=== PATIENT | male | born 1980 | race Caucasian/White ===

== ENCOUNTER 2020-10-29 14:29 | Outpatient (AMBR) | payer MEDICAID, SELFPAY ==
--- NOTE | 2020-09-09 10:42 | PT.ODS1RPT ---
PT OP Progress/Discharge Note Date of Service: 09/09/20 Progress Note/DC Note Progress Note/Discharge Note: DC Note Patient Information Visit Reasons: left leg Service Continue Service or Discharge: Discharge Discharge Date: 09/09/20 Status Assessment: Pt attended the initial evaluation and 6 Rx visits and then no showed on 09/01 and then on 09/09. Pt?s attendance is not consistent enough to make progress with goals. Pt will be D/C'd according to non-compliance with attendance policy. Plan: D/C
--- NOTE | 2020-10-09 13:48 | PTNOTE_ITS ---
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 Pt was seen here before hand and had difficulty attending sessions due to financial reason and no transportation. Pt currently has limitation with sitting, standing, chores, driving, recreational activities, walking, sitting, and lifting activities. Pt is in the process of getting a new prothesis. Objective L/S AROM (sitting): all motions are 50% towards end with pain in all plane Left Hip AROM (standing) Flexion: 45 deg Abduction: 45 deg Extension: 10 deg ER and IR: NT Left Hip MMTs Flexors: 3-/5 Abductors: 3/5 Extensor: 3-/5 SLS: unable Palpation: TTP and increase tone T11-L2 paraspinal muscles; Assessment Pt demonstrate back pain with left hip mobility deficits leading to decline function and difficulty with ADLs. Pt will benefit from physical therapy to increase ROM, strength, and work on ambulation. Short Term and Prison Goals 1) Increase L/S AROM WNL in 8 wks to be able to sit and stand more than 45 mins 2) Increase left hip AROM WFL in 8 wks to be able to perform chores 3) Increase left hip MMTs grossly to 4-/5 in 8 wks to be able to ambulate more than 1 hr with AD 4) Decrease back pain to 3/10 in 8 wks to be able to sleep more than 6 hrs 5) Increase core strength WFL in 8 wks to be able to perform lifting activities 6) Indep with HEP Treatment Plan 1) Manual Therapy 2) Therapeutic Activities 3) Therapeutic Exercises 4) Modalities (ice, heat) 5) Balance Training 6) Gait Training 7) Pt's plan of care will be transfer to [facility] PT, DPT as of 10/09/20 Frequency and Duration 2 x wk for 8 wks Certification Dates: 10/09/20 to 01/09/21 Office Procedures PT Procedures PT Date of Service: 10/09/20 OP PT Eval Mod Complex 30 minutes: Yes
--- NOTE | 2020-10-13 15:53 | PTNOTE_ITS ---
PT Outpatient Daily Note Date of Service: 10/13/20 OP Daily Note Visit Reasons: left leg Outpatient Physical Therapy Treatment Date: 10/13/20 Subjective: Pt reports L LE pain and LBP Objective: See f/S for therex Assessment: Pt circumducts the L LE which abduction may be irritating the hip. We adjusted the flexion pressure of prosthesis to motion picture critic to see if it would flex sooner so he could swing the foot without circumducting it. He was able to slightly improve in this aspect. Plan: Continue per POC Length of Time (minutes) of Treatment: 30 Minutes Office Procedures PT Procedures PT Date of Service: 10/09/20 OP PT Eval Mod Complex 30 minutes: Yes PT Procedures PT Date of Service: 10/13/20 Therapeutic Exercise 30 minutes: Yes
--- NOTE | 2020-10-15 15:58 | PT.ODAYNRPT ---
PT Outpatient Daily Note Date of Service: 10/15/20 OP Daily Note Visit Reasons: left leg Outpatient Physical Therapy Treatment Date: 10/15/20 Subjective: Pt reports L LE pain and that the prosthesis digs into his upper thigh. He has appt with service captain in the upcoming month. Objective: See f/S for therex Assessment: Pt circumducts the L LE which abduction may be irritating the hip. We adjusted the flexion pressure of prosthesis to dispatcher service or work to see if it would flex sooner so he could swing the foot without circumducting it. He was able to slightly improve in this aspect. Plan: Continue per POC Length of Time (minutes) of Treatment: 30 Minutes Office Procedures PT Procedures PT Date of Service: 10/09/20 OP PT Eval Mod Complex 30 minutes: Yes PT Procedures PT Date of Service: 10/13/20 Therapeutic Exercise 30 minutes: Yes PT Procedures PT Date of Service: 10/15/20 Therapeutic Exercise 30 minutes: Yes
--- NOTE | 2020-10-20 18:21 | PT.ODAYNRPT ---
PT Outpatient Daily Note Date of Service: 10/20/20 OP Daily Note Visit Reasons: left leg Outpatient Physical Therapy Treatment Date: 10/20/20 Subjective: Pt reports L LE pain and that the prosthesis digs into his upper thigh. He has appt with retort load expediter in the upcoming month. Objective: See f/S for therex Assessment: Pt circumducts the L LE which abduction may be irritating the hip. The prosthesis was loose and wanted to fall off today. He has good strength with total gym squats. Plan: Continue per POC Length of Time (minutes) of Treatment: 30 Minutes Office Procedures PT Procedures PT Date of Service: 10/09/20 OP PT Eval Mod Complex 30 minutes: Yes PT Procedures PT Date of Service: 10/20/20 Therapeutic Exercise 30 minutes: Yes PT Procedures PT Date of Service: 10/13/20 Therapeutic Exercise 30 minutes: Yes PT Procedures PT Date of Service: 10/15/20 Therapeutic Exercise 30 minutes: Yes
--- NOTE | 2020-10-26 18:37 | PTNOTE_ITS ---
PT Outpatient Daily Note Date of Service: 10/26/20 OP Daily Note Visit Reasons: left leg Outpatient Physical Therapy Treatment Date: 10/26/20 Subjective: Pt reports L LE pain and that the prosthesis digs into his upper thigh. He has appt with vat overhauler in the upcoming month. Objective: See f/S for therex Assessment: Pt circumducts the L LE which abduction may be irritating the hip. The prosthesis was loose and wanted to fall off today. He has good strength with total gym squats. Plan: Continue per POC Length of Time (minutes) of Treatment: 30 Minutes Office Procedures PT Procedures PT Date of Service: 10/09/20 OP PT Eval Mod Complex 30 minutes: Yes PT Procedures PT Date of Service: 10/20/20 Therapeutic Exercise 30 minutes: Yes PT Procedures PT Date of Service: 10/26/20 Therapeutic Exercise 30 minutes: Yes PT Procedures PT Date of Service: 10/13/20 Therapeutic Exercise 30 minutes: Yes PT Procedures PT Date of Service: 10/15/20 Therapeutic Exercise 30 minutes: Yes
--- NOTE | 2020-10-29 17:03 | PT.ODS1RPT ---
PT OP Progress/Discharge Note Date of Service: 10/29/20 Progress Note/DC Note Progress Note/Discharge Note: Progress Note Patient Information Visit Reasons: left leg Treatment Dx #1: Back Pain Treatment Dx #2: Left Hip Pain Service Continue Service or Discharge: Continue Service Certification Date Certification Dates: 10/09/20 to 01/09/21 Status Subjective: Pt reports L LE pain and that the prosthesis digs into his upper thigh. He still has LBP. Objective: See f/S for therex Assessment: Pt has attended 5/5 Rx visits with slow progress with standing therex. Pt circumducts the L LE which abduction may be irritating the hip and L/S. The prosthesis was loose and wanted to fall off today. He has good strength with total gym squats. Pt would benefit from continued therapy to relieve LBP. Plan: Request additional visits x5 to address LBP. Need provider signature to continue since order is for 2x3 weeks. Goals Achieved: Office Procedures PT Procedures PT Date of Service: 10/09/20 OP PT Eval Mod Complex 30 minutes: Yes PT Procedures PT Date of Service: 10/20/20 Therapeutic Exercise 30 minutes: Yes PT Procedures PT Date of Service: 10/26/20 Therapeutic Exercise 30 minutes: Yes PT Procedures PT Date of Service: 10/13/20 Therapeutic Exercise 30 minutes: Yes PT Procedures PT Date of Service: 10/15/20 Therapeutic Exercise 30 minutes: Yes PT Procedures PT Date of Service: 10/29/20 Therapeutic Exercise 30 minutes: Yes
== END 2020-11-03 23:59 | disposition home or self-care (01) ==
PROVIDERS: PCP Physician Assistant; Referring Provider Physician Assistant; Visit Provider Physician Assistant
DX: M54.5 Low back pain (principal); M25.552 Pain in left hip; R26.2 Difficulty in walking, not elsewhere classified; G89.29 Other chronic pain; Z89.512 Acquired absence of left leg below knee
CPT/HCPCS: 97110; 97162

== ENCOUNTER 2024-07-30 09:48 | Emergency (ER) | payer MEDICARE, MEDICAID, SELFPAY ==
[2024-07-30 09:49] VITALS: BMI 33.5
[2024-07-30 10:02] VITALS: BP 167/84; PULSE 81; RESP 18; TEMP 36.4; O2SAT 99
--- NOTE | 2024-07-30 10:10 | XR_ITS ---
Examination: CT brain head without contrast. 2-D sagittal coronal reconstructions Date and time of exam:July 30, 2024 1131 hours Comparison 11/18/2019 INDICATIONS: Intermittent head pain and pressure 6 months CTDI: vol (mGy):56 DLP: (mGycm):1143 Technique: Multiple CT axial sections of the brain have been obtained, 5 mm slice thickness. Contrast has not been administered. 2-D sagittal, coronal reconstructions have been obtained Low dose protocols were performed. One or more of the following dose reduction techniques were used; automated exposure control, adjustment of the mA and/or KV according to patient size, use of iterative reconstruction technique. Findings: No significant ventricular enlargement. Intra-axial or extra-axial hemorrhage density is not seen. No mass effect or midline shift Basal cisterns are not remarkable. Fourth ventricle is midline. Cranial vault intact. Impression: Negative for acute hemorrhage, mass effect or midline shift Advise clinical correlation follow-up accordingly
--- NOTE | 2024-07-30 10:10 | EKG_ITS ---
[facility] Test Date: 2024-07-30 Pat Name: LOW PISANO Department: Room: - Gender: Male [employer]: : 1980 Requested By: Jean-Paul Harris Order Number: [id number] Reading MD: Jean-Paul Harris Measurements Intervals Russell Rate: 76 P: 39 MS: 167 QRS: 20 QRSD: 87 T: 16 QT: 361 QTc: 407 Interpretive Statements SINUS RHYTHM Compared to ECG 11/12/2023 09:36:43 No significant changes /store/S0/[id number].pdf
--- NOTE | 2024-07-30 10:10 | XR_ITS ---
Examination: PA lateral chest 2 views TECHNIQUE: Upright PA lateral chest 2 views Date and time: July 30, 2024 1057 hours INDICATIONS: Shortness of breath 2 months, smoking history 15 years. FINDINGS: Normal heart size Descending thoracic aortic endoluminal stent Blunting of the posterior costophrenic angles No pneumonia or pulmonary edema IMPRESSION: No pneumonia or pulmonary edema
--- NOTE | 2024-07-30 10:10 | PD.EDRME ---
Rapid Medical Screening Exam RME Arrival date/time: 07/30/24 09:48 43-year-old male with a history of depression and anxiety presents to the emergency room with a chief complaint of a 10 out of 10 headache, dizziness, lightheadedness, ringing in the ears x 1 month. Patient states he is also hearing voices. Patient denies any suicidal or homicidal ideation at this time I have greeted and performed a focused initial assessment of this patient. A comprehensive ED assessment and evaluation of the patient, analysis of all test results, and completion of the medical decision making process will be conducted by additional ED providers. Chief Complaint: Headache Time Seen by Provider: 07/30/24 09:53 Vital signs: Vital Signs Temperature 97.6 F 07/30/24 10:02 Pulse Rate 81 07/30/24 10:02 Respiratory Rate 18 07/30/24 10:02 Blood Pressure 167/84 H 07/30/24 10:02 Pulse Oximetry (%) 99 07/30/24 10:02 Oxygen Delivery Method Room Air 07/30/24 10:02 Vital signs reviewed by provider: Yes
[2024-07-30 10:43] LABS: Collection Type, Urine Clean Catch
[2024-07-30 10:52] LABS: Basophils # (Auto) 0.1 Thou/mm3 (0.0-0.2); Basophils % (Auto) 1 % (0-2.5); Eosinophils # (Auto) 0.2 Thou/mm3 (0.0-0.5); Eosinophils % (Auto) 2 % (0-10); Hematocrit 41.8 % (41.0-53.0); Hemoglobin 14.1 g/dL (13.5-16.0); Immature Granulocytes % (Auto) 0 % (0-0); Immature Granulocytes Auto 0.04 Thou/mm3 (0.00-0.00); Lymphocytes # (Auto) 1.6 Thou/mm3 (1.0-4.8); Lymphocytes % (Auto) 14 % (10-50); Mean Corpuscular HGB Conc 33.7 g/dl (31.0-37.0); Mean Corpuscular Hemoglobin 26.8 pg (25.0-35.0); Mean Corpuscular Volume 80 fL (80-100); Monocytes # (Auto) 0.9 Thou/mm3 (0.0-0.8); Monocytes % (Auto) 8 % (0-12); Neutrophils # (Auto) 8.2 Thou/mm3 (1.8-7.7); Neutrophils % (Auto) 75 % (37-80); Nucleated Red Blood Cell % 0 /100 WBC (0); Platelet Count 201 Thou/mm3 (140-440); RDW Standard Deviation 41.2 fL (35.1-43.9); Red Blood Count 5.26 Miln/mm3 (4.50-5.90)
[2024-07-30 10:59] LABS: Bacteria,Urine Rare; Bilirubin,Urine Negative (Negative); Blood,Urine Trace (Negative); Clarity,Urine Clear (Clear/Hazy); Color,Urine Yellow (Lt Yel-Yel); Glucose, Urine Negative (Negative); Ketones,Urine Negative (Negative); Leukocyte Esterase,Urine Negative (Negative); Nitrite,Urine Negative (Negative); Protein,Urine Trace (Neg - Trace); RBC,Urine 2 /hpf (0-3); Specific Gravity,Urine 1.021 (1.001-1.035); Squamous Epithelial Cell,Urine < 1 /hpf (0-5); Urobilinogen,Urine Negative mg/dL (0.0-1.0); WBC,Urine 2 /hpf (0-5)
[2024-07-30 11:13] LABS: B-Type Natriuretic Peptide < 20 pg/mL (0-100)
[2024-07-30 11:15] LABS: Alanine Aminotransferase 12 U/L (10-49); Albumin, Serum 4.9 gm/dL (3.5-5.0); Albumin/Globulin Ratio 2.1 (1.2-2.2); Alkaline Phosphatase 79 U/L (46-116); Anion Gap 8 (7-16); Aspartate Amino Transferase 14 U/L (0-34); BUN/Creatinine Ratio 9 Ratio (12-20); Bilirubin,Total 0.3 mg/dL (0.3-1.2); Blood Urea Nitrogen 10 mg/dL (9-23); Calcium 8.4 mg/dL (8.3-10.6); Calcium (Corrected) 8.4 mg/dL (8.5-10.1); Carbon Dioxide 25.9 mMol/L (20.0-31.0); Chloride 107 mMol/L (98-107); Creatinine (Component) 1.1 mg/dL (0.6-1.3); Estimated Creatinine Clearance 108.7 mL/min (>60); Globulin 2.3 gm/dL (2.3-3.5); Glucose 107 mg/dL (74-106); Magnesium 1.9 mg/dL (1.6-2.6); Osmolality,Calculated 280 (275-295); Potassium 4.3 mMol/L (3.4-5.1); Sodium 141 mMol/L (136-145); Total Protein 7.2 gm/dL (5.7-8.2); Troponin I 0.042 ng/mL (0.0-0.045); eGFR > 60 See Note
[2024-07-30 12:06] LABS: Amphetamine/Methamp Scrn,U Negative (Negative); Barbiturate Screen,Urine Negative (Negative); Benzodiazepines Screen,Urine Negative (Negative); Benzoylecgonine Screen, Ur Negative (Negative); Fentanyl Screen,Urine Negative (Negative); Opiate Screen,Urine Negative (Negative); THC Screen,Urine Positive (Negative)
--- NOTE | 2024-07-30 12:29 | EDNOTE_ITS ---
ED Headache RME/HPI General Chief Complaint: Headache Stated Complaint: HEAD PRESSURE/RINGING X6 MONTHS Time Seen by Provider: 07/30/24 09:53 Source: patient Arrival date/time: 09:48 This is a case of 43-year-old male with a history of depression and anxiety presents to the emergency room with a chief complaint of a 10 out of 10 headache, dizziness, lightheadedness, ringing in the ears x 1 month. . 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 Patient states he is also hearing voices. Patient denies any suicidal or homicidal ideation at this time I have greeted and performed a focused initial assessment of this patient. A comprehensive ED assessment and evaluation of the patient, analysis of all test results, and completion of the medical decision making process will be conducted by additional ED providers. Related Data Previous Rx's ?Medication ?Instructions ?Recorded [id number] 1 cap PO Q6H PRN noel n #14 caps 07/30/24 50 mg-300 mg-40 mg capsule (Fioricet) ondansetron 4 mg disintegrating 4 mg PO Q8H PRN nausea and 07/30/24 tablet vomiting #20 tabs trazodone 50 mg tablet 50 mg PO QDAY #14 tabs 07/30 Allergies Allergy/AdvReac Type Severity Reaction Status Date / Time No Known Allergies Allergy Verified 07/30/24 09:52 Review of Systems Review of Systems Systems Reviewed: All systems reviewed, normal except as documented Constitutional Constitutional: Reports system reviewed and no additional complaints, except as documented, Reports as per HPI, Denies chills, Denies fatigue, Denies fever(s) and Reports headache(s) Eyes Eyes: Reports system reviewed and no additional complaints, except as documented, Reports as per HPI, Denies blurry vision, Denies change in vision, Denies decreased night vision, Denies diplopia, Denies eye discharge, Denies dry eyes, Denies exophthalmos and Denies floaters ENT Ears, Nose, Mouth, and Throat: Reports system reviewed and no additional complaints, except as documented, Reports as per HPI, Denies abnormal hearing, Denies dizziness, Denies ear discharge, Denies otalgia, Denies facial pain, Reports headache(s), Denies hearing loss, Denies hoarseness, Denies nasal congestion, Denies nasal discharge, Denies nasal obstruction, Denies nasal trauma, Denies post nasal drip, Denies sinus pressure, Denies sore throat, Denies throat swelling and Reports tinnitus Cardiovascular Cardiovascular: Reports system reviewed and no additional complaints, except as documented, Reports as per HPI, Denies chest pain, Denies chest pain at rest and Denies dyspnea Respiratory Respiratory: Reports system reviewed and no additional complaints, except as documented, Reports as per HPI, Denies chest congestion, Denies cough and Denies dyspnea Gastrointestinal Gastrointestinal: Reports system reviewed and no additional complaints, except as documented and Denies as per HPI Genitourinary Genitourinary: Reports system reviewed and no additional complaints, except as documented and Reports as per HPI Musculoskeletal Musculoskeletal: Reports system reviewed and no additional complaints, except as documented and Reports as per HPI Neurologic Neurologic: Reports system reviewed and no additional complaints, except as documented, Denies abnormal hearing, Denies dizziness and Reports headache(s) Endocrine Endocrine: Denies fatigue Allergic/Immunologic Allergic/Immunologic: Denies throat swelling Past Medical History Past Medical History CARDIAC: Positive Hypercholesterolemia and Hypertension; Negative Cardiac Disorders or Congestive Heart Failure RESPIRATORY: Negative Chronic Obstructive Pulmonary Disease (COPD) or Asthma GENITOURINARY: Negative Renal Disease ENDOCRINE: Positive Endocrine Disorders and Diabetes Mellitus Type 2; Negative Diabetes Mellitus Type 1 HEMATOLOGIC: Negative Sickle Cell Disease Surgical History SURGICAL: Positive Amputation (Left above the knee) Social History SMOKING STATUS: Heavy (> 1 pack/day) ED Exam General Limitations: Present no limitations General appearance: Present alert and in no apparent distress; Absent appears intoxicated, anxious or lethargic Head Head exam: Present atraumatic Eye Eye exam: Present normal appearance, PERRL, EOMI, miosis and other (no pappilededema); Absent conjunctival injection, nystagmus, periorbital swelling or periorbital tenderness ENT ENT exam: Present normal exam, normal oropharynx, mucous membranes moist, TM's normal bilaterally and normal external ear exam Expanded ENT Exam TM/Canal exam: Bilateral TM: erythema (negative), bulging (negative), effusion (negative), perforation (negative), loss of landmarks (negatative), foreign body (negative), cerumen impaction (negative), canal discharge (negative) and canal tenderness (negative) Nasal speculum exam: Bilateral: normal Neck Neck exam: Present normal inspection, full ROM and trachea midline; Absent tenderness, meningismus, lymphadenopathy or thyromegaly Chest Chest inspection: Present normal inspection and symmetric chest wall rise Respiratory Respiratory exam: Present normal lung sounds bilaterally; Absent respiratory distress, wheezes, stridor, accessory muscle use or prolonged expiratory phase Cardiovascular Cardiovascular exam: Present regular rate, normal rhythm and normal heart sounds Abdominal Exam Abdominal exam: Present soft and normal bowel sounds Extremities Exam Extremities exam: Present normal inspection and full ROM Back Exam Back exam: Present normal inspection and full ROM Neurological Exam Neurological exam: Present alert, oriented X3 and CN II-XII intact Expanded Neurological Exam Patient oriented to: Present person and time Cranial nerves: Normal: EOM function (II, III, IV, ), facial sensation (V), facial palsy (VII), gag reflex (IX), spinal accessory function (XI) and tongue deviation (XII) Cerebellar function: Normal: finger to nose and heel to ardon Cerebellar function: Present normal gait (patinet s/p aka left on using cane) Motor strength - LUE: 5/5 Motor strength - RUE: 5/5 Motor strength - RLE: 5/5 Upper motor neuron exam: Normal: pronator drift, Babinski sign and sensory extinction Sensory exam upper extremity: Normal: light touch, pin prick, temperature and 2 point discrimination Sensory exam lower extremity: Abnormal Right: light touch, pin prick, temperature and 2 point discrimination Psychiatric Psychiatric exam: Present normal affect, normal mood and depressed; Absent agitated, anxious, flat affect, manic, homicidal ideation or suicidal ideation Skin Skin exam: Present warm, dry, intact and normal color Course Quality Measures none Orders Category Date Time Status EKG (ED ONLY) *Do not use* NOW Care 07/30/24 10:[address] head/brain wo con Stat Exams 07/30/24 10:10 Completed EKG (ED Only) Stat Exams 07/30/24 10:10 Draft XR chest 2V Stat Exams 07/30/24 10:10 Completed B-Type Natriuretic Peptide Stat Lab 07/30/24 10:31 Completed CBC Stat Lab 07/30/24 10:31 Completed Comprehensive Metabolic Panel Stat Lab 07/30/24 10:31 Completed Drug Screen,Urine Stat Lab 07/30/24 10:35 Completed Magnesium Stat Lab 07/30/24 10:31 Completed Troponin I Stat Lab 07/30/24 10:31 Completed Urinalysis Stat Lab 07/30/24 10:35 Completed HYDROcodone*/APAP 5/325 [Graham 5/325] Med 07/30/24 13:36 Discontinued 1 tab PO X1 ONE Ketorolac Inj [Toradol Inj] Med 07/30/24 13:36 Discontinued 30 mg IM X1 ONE Ondansetron Odt [Zofran Odt] Med 07/30/24 13:36 Discontinued 4 mg PO X1 ONE Vital Signs Vital signs: Vital Signs Temperature 97.6 F 07/30/24 10:02 Pulse Rate 81 07/30/24 10:02 Respiratory Rate 18 07/30/24 10:02 Blood Pressure 167/84 H 07/30/24 10:02 Pulse Oximetry (%) 99 07/30/24 10:02 Oxygen Delivery Method Room Air 07/30/24 10:02 Oxygen saturation 99% on room air WNL Headache MDM Narrative MDM Narrative:: This is a case of 43-year-old male with a history of depression and anxiety presents to the emergency room with a chief complaint of a 10 out of 10 headache, dizziness, lightheadedness, ringing in the ears x 1 month. . 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 Physical examination patient is awake alert oriented not in distress not toxic looking patient is using cane history of left AKA patient vital signs stable except blood pressure and noted to be 167/87 after giving medication for pain patient blood pressure was reassessed and noted to be 140/90 patient is not tachycardic not tachypneic afebrile and not hypoxic eye exam is normal PERRL EOM intact no palpable edema negative for meningeal sign no focal deficit Blood test showed mild leukocytosis 11,000 possibly due to headache pain no anemia kidney and liver function is normal no electrolyte imbalance urinalysis is normal patient is positive for marijuana I discussed this matter with the patient and patient will follow-up with his doctor regarding marijuana use patient CT scan showed normal and unremarkable I do not think patient is having CVA TIA or meningitis patient possible headache is due to lack of sleep patient is having insomnia secondary to the depression patient states that he will see a psychiatrist psychologist for his depression Patient was given Toradol IM Zofran and Graham which patient was reassessed after 30 minutes patient pain improved markedly neurological exam is normal and unremarkable At this point patient will be discharged home with stable condition he was advised to see a neurologist if the headaches recur or persist he was also referred to ENT specialist for tinnitus HEENT is normal and unremarkable patient was also advised to see psychiatry psychologist for insomnia and depression Patient was prescribed with Fioricet for headache Zofran for vomiting and trazodone for insomnia and depression Patient was discharged with comfortable condition walking with stable gait. Patient verbalized no further complains explained diagnosis and answered patient question. Patient is comfortable with the proposed management plan including the need to follow up with his/her primary care physician and any specialist if applicable Discussed patient for any urgent condition or worsening sx, He/She needed to go to emergency room immediately or call 911. Patient acknowledge the responsibility to follow up as instructed and to monitor her/his symptoms. For any persistence of the symptoms for more than 3-5 days return precaution advised. Discussed the result of the test and was given printed discharge instruction Patient data External records reviewed:: [facility] previous records Clinical information provided by:: none Social determinants that could affect healthcare access:: none Patient has the following chronic illnesses:: None How is presenting disease/condition affected by chronic disease/condition?: no chronic disease Evaluation data The following diagnostics were reviewed and interpreted by me:: lab results and radiology exam(s) Lab and/or radiology exams considered but not ordered:: Reviewed Interpretation Summary: Reviewed Medications / Prescriptions Medications or Prescriptions considered but not ordered:: Given Medication administrations:: Medication Administration History Discontinued Medications Hydrocodone Bitart/Acetaminophen (Hydrocodone/Apap 5/325 Tablet) 1 tab PO X1 ONE Stop: 07/30/24 13:37 Ketorolac Tromethamine (Ketorolac Inj 60 Mg/2 Ml Vial) 30 mg IM X1 ONE Stop: 07/30/24 13:37 Ondansetron HCl (Ondansetron Odt 4 Mg Tabrap) 4 mg PO X1 ONE; Protocol Stop: 07/30/24 13:37 Given Consultations Consultation(s) initiated? (list below): No Diagnosis Differential diagnosis headache: migraine, tension headache, headache and sinusitis Most likely diagnosis given after review of the tests above:: Headache Admission Indicated Admission indicated?: not indicated Explain why admission is indicated or not indicated:: Not indicated Admission Request Was there a request for admission?: No Admission Attestation Admission request attestation: Not indicated Disposition Plan Disposition Plan: Discharge Discharge Attestation Discharge Attestation: The patient and all family members were given an opportunity to ask questions and understood the discharge instructions. Discharge instructions specifically effects, indications for sooner follow up or return to the emergency department, and the expected course of current diagnosis. Patient condition: Stable Discharge Plan Plan Patient Disposition: HOME (Self Care) Patient condition on transfer: Stable Prescriptions/Referrals Prescriptions/Med Rec: New tbjaqycpse-ccfvdunzpwuur-ebkj [Fioricet] 50-300-40 mg capsule 1 cap PO Q6H PRN (Reason: pain) Qty: 14 0RF trazodone 50 mg tablet 50 mg PO QDAY Qty: 14 0RF ondansetron 4 mg tablet,disintegrating 4 mg PO Q8H PRN (Reason: nausea and vomiting) Qty: 20 0RF Referrals: Oswaldo Doll FNP [Primary Care Provider] - In 1 week Jacob Hines DO [Physician] - In 1 week (for further evaluation and tx of tinnitus) Problem List Clinical Impression: Headache, Tinnitus, Insomnia Patient/Caregiver Discharge Instructions Education Materials: Self-Care for Headaches, Tinnitus (Ringing in the Ears), ED Insomnia Additional Instructions: Follow-up with your primary care physician in 2 days for reevaluation and to be referred to neurologist if your headache persist or recur worsening symptoms or any emergent concerns such as numbness weakness blurring of vision call 911 or go to the nearest emergency room it is important to be referred or see ENT specialist for further evaluation and treatment of your tinnitus or ringing on the ears continue to see your psychiatrist psychologist for your depression and insomnia keep hydrated Print Language: Italian Stand Alone Forms: [employer]., Patient Portal Info Letter PA/PRISON CLASSIFICATION COUNSELOR Supervising Physician PA/PRISON CLASSIFICATION COUNSELOR Supervising Physician: dr jade
[2024-07-30] MEDS: HYDROcodone/APAP 5/325 TABLET 1 TAB PO (13:53)
[2024-07-30] MEDS: ONDANSETRON ODT 4 MG TABRAP PO (13:54)
[2024-07-30] MEDS: KETOROLAC INJ 60 MG/2 ML VIAL 30 MG IM (13:55)
== END 2024-07-30 14:10 | disposition home or self-care (01) ==
PROVIDERS: Nurse Practitioner Family; Emergency Provider Emergency Medicine
DX: R51.9 Headache, unspecified (principal); H93.13 Tinnitus, bilateral; G47.00 Insomnia, unspecified; F41.9 Anxiety disorder, unspecified
CPT/HCPCS: 36415; 70450; 71046; 80053; 80307; 81001; 83735; 83880; 84484; 85025; 93005; 96372; 99284; J1885; Q0162; A9270

== ENCOUNTER 2024-09-11 15:57 | Emergency (ER) | payer MEDICARE, MEDICAID, SELFPAY ==
[2024-09-11 16:01] VITALS: PULSE 109; RESP 18; O2SAT 97
[2024-09-11 16:24] VITALS: BP 117/75; PULSE 103; RESP 18; TEMP 36.9; O2SAT 95; BMI 34.4
--- NOTE | 2024-09-11 16:41 | XR_ITS ---
Examination: Knee, right , 3 views Technique: Knee AP, lateral, oblique 3 views Date and time of exam: September 11, 2024 1642 hours INDICATIONS: Patient felt a pop in the knee today followed by pain. FINDINGS: Mild narrowing medial joint space No acute fracture Small knee effusion IMPRESSION: No acute fracture
--- NOTE | 2024-09-11 17:27 | EDNOTE_ITS ---
Upper Extremity Injury RME/HPI General Chief Complaint: Extremity Injury, Upper Stated Complaint: RT LEG PAIN Time Seen by Provider: 09/11/24 16:16 Source: patient Arrival date/time: 09/11/24 15:57 This is [id number] male who presents to the emergency department complaining of right knee pain. 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 He does report he was attempting to ambulate with the use of a walker yesterday when he heard a pop in his right knee. Has been taking Tylenol [id number] with some mild relief. Here requesting x-ray today. Denies any other concerns today. Mode of arrival: ambulatory Related Data Previous Rx's ?Medication ?Instructions ?Recorded [id number] 1 cap PO Q6H PRN noel n #14 caps 07/30/24 50 mg-300 mg-40 mg capsule (Fioricet) ondansetron 4 mg disintegrating 4 mg PO Q8H PRN nausea and 07/30/24 tablet vomiting #20 tabs trazodone 50 mg tablet 50 mg PO QDAY #14 tabs 07/30 Allergies Allergy/AdvReac Type Severity Reaction Status Date / Time No Known Allergies Allergy Verified 07/30/24 09:52 Review of Systems Review of Systems Systems Reviewed: All systems reviewed, normal except as documented Narrative Review of Systems: Gen: No fever, no chills, no weight loss EYES: No discharge, no visual changes, no pain HEENT: No ear pain, no congestion, no sore throat PULM: No shortness of breath, no cough, no congestion CV: No chest pain, no dyspnea on exertion, no palpitations GI: No nausea, no vomiting, no diarrhea, no pain, no constipation : No frequency, no urgency,? no dysuria Musc/skel:+ pain, no back pain Skin: No rash? Psyc: No hallucinations, no depression Heme/Lymph: No easy bleeding or bruising tendencies Neuro: No weakness, no headache Course Quality Measures none Orders Category Date Time Status XR knee RT 3V Stat Exams 09/11/24 16:41 Completed Ketorolac Inj [Toradol Inj] Med 09/11/24 17:07 Discontinued 30 mg IM X1 ONE Vital Signs Vital signs: Vital Signs Temperature 98.5 F 09/11/24 16:24 Pulse Rate 103 H 09/11/24 16:24 Respiratory Rate 18 09/11/24 16:24 Blood Pressure 117/75 09/11/24 16:24 Pulse Oximetry (%) 95 09/11/24 16:24 Oxygen Delivery Method Room Air 09/11/24 16:24 Extremity Injury Patient data External records reviewed:: [facility] previous records Clinical information provided by:: patient Social determinants that could affect healthcare access:: none Patient has the following chronic illnesses:: LeftBKA How is presenting disease/condition affected by chronic disease/condition?: no chronic disease Evaluation data The following diagnostics were reviewed and interpreted by me:: radiology exam(s) Lab and/or radiology exams considered but not ordered:: No Interpretation Summary: Examination: Knee, right , 3 views Technique: Knee AP, lateral, oblique 3 views Date and time of exam: September 11, 2024 1642 hours INDICATIONS: Patient felt a pop in the knee today followed by pain. FINDINGS: Mild narrowing medial joint space No acute fracture Small knee effusion IMPRESSION: No acute fracture Medications / Prescriptions Medications or Prescriptions considered but not ordered:: NNo Medication administrations:: Medication Administration History Discontinued Medications Ketorolac Tromethamine (Ketorolac Inj 60 Mg/2 Ml Vial) 30 mg IM X1 ONE Stop: 09/11/24 17:08 Last Admin: 09/11/24 17:59 Dose: 30 mg Documented By: OMAR Ng medications administered Consultations Consultation(s) initiated? (list below): No Diagnosis Upper Extremity Injury Differential Diagnosis: other (, patella dislocation, k nee fracture, fracture. Knee sprain) Most likely diagnosis given after review of the tests above:: Knee sprain Admission Indicated Admission indicated?: not indicated Admission Request Was there a request for admission?: No Disposition Plan Disposition Plan: Discharge Discharge Attestation Discharge Attestation: The patient and all family members were given an opportunity to ask questions and understood the discharge instructions. Discharge instructions specifically effects, indications for sooner follow up or return to the emergency department, and the expected course of current diagnosis. Patient condition: Stable Discharge Plan Plan Patient Disposition: HOME (Self Care) Patient condition on transfer: Stable Prescriptions/Referrals Prescriptions/Med Rec: No Action naufnowigm-csrxgqzflkzsx-pmhd [Fioricet] 50-300-40 mg capsule 1 cap PO Q6H PRN (Reason: pain) Qty: 14 0RF trazodone 50 mg tablet 50 mg PO QDAY Qty: 14 0RF ondansetron 4 mg tablet,disintegrating 4 mg PO Q8H PRN (Reason: nausea and vomiting) Qty: 20 0RF Referrals: Oswaldo Doll FNP [Primary Care Provider] - In 1 week Problem List Clinical Impression: Muscle strain, Effusion, right knee Patient/Caregiver Discharge Instructions Discharge Activity: activity as tolerated Education Materials: ED Knee Effusion Additional Instructions: Your x-ray does not show any fractures. However does show show a small effusion. Please follow-up with your primary doctor Return to the emergency department with any worsening symptoms or any condition. Print Language: Bengali Stand Alone Forms: [employer] Award Info., Patient Portal Info Letter KATHY/JARRED Supervising Physician KATHY/JARRED Supervising Physician: dr. Hoang
[2024-09-11] MEDS: KETOROLAC INJ 60 MG/2 ML VIAL 30 MG IM (17:59)
== END 2024-09-11 18:09 | disposition home or self-care (01) ==
PROVIDERS: Emergency Provider Emergency Medicine
DX: S76.911A Strain of unspecified muscles, fascia and tendons at thigh level, right thigh, initial encounter (principal); M25.461 Effusion, right knee; X58.XXXA Exposure to other specified factors, initial encounter; Z89.612 Acquired absence of left leg above knee
CPT/HCPCS: 73562; 96372; 99283; J1885

== ENCOUNTER 2024-10-01 00:09 | Emergency (ER) | payer MEDICARE, MEDICAID, SELFPAY ==
[2024-10-01 00:16] VITALS: BP 138/82; PULSE 108; RESP 20; TEMP 36.7; O2SAT 97; BMI 34.2
[2024-10-01 00:45] VITALS: PULSE 111; RESP 20; O2SAT 96
--- NOTE | 2024-10-01 01:03 | XR_ITS ---
Examination: AP chest single view TECHNIQUE: AP portable upright chest single view Date and time: October 01, 2024, 0117 hours, comparison July 30, 2024. INDICATIONS: Chest pain today. FINDINGS: Normal heart size. No pneumonia or pulmonary edema. Descending thoracic aorta stent Minor blunting of the left lateral costophrenic angle Old lower left rib fractures IMPRESSION: No active disease.
--- NOTE | 2024-10-01 01:03 | PD.EDARRY ---
ED Arrhythmia Palp. RME/HPI General Chief Complaint: Chest Pain Stated Complaint: PALIPATATIONS Time Seen by Provider: 10/01/24 00:59 Arrival date/time: 10/01/24 00:09 RME / HPI RME / HPI narrative: DR. SEBASTIAN MAIN ED EVALUATION: 44 y/ male with Hx of HTN, Type II DM, Amputation, and Hypercholesterolemia presents to ED c/o palpitations, chest pressure, and lightheadedness x approximately 2 hours. Palpitations are fast and hard. Patient has never experienced these symptoms before. No other concerns or complaints expressed at this time. Related Data Previous Rx's ?Medication ?Instructions ?Recorded uttsxngfii-umpkapkztsptx-pcswmjbh 1 cap PO Q6H PRN pain #14 caps 07/30/24 50 mg-300 mg-40 mg capsule (Fioricet) ondansetron 4 mg disintegrating 4 mg PO Q8H PRN nausea and 07/30/24 tablet vomiting #20 tabs trazodone 50 mg tablet 50 mg PO QDAY #14 tabs 07/30/24 Allergies Allergy/AdvReac Type Severity Reaction Status Date / Time No Known Allergies Allergy Verified 07/30/24 09:52 Review of Systems Review of Systems Systems Reviewed: All systems reviewed, normal except as documented Past Medical History Past Medical History CARDIAC: Positive Hypercholesterolemia and Hypertension ENDOCRINE: Positive Endocrine Disorders and Diabetes Mellitus Type 2 Surgical History SURGICAL: Positive Amputation (Left above the knee) Social History SMOKING STATUS: Current every day smoker ED Exam Narrative Physical exam: Generally patient is alert in no obvious distress heart is regular rate and rhythm without rubs or gallops EXTR auscultation equal bilaterally abdomen soft bowel sounds present nondistended nontender neurologic exam no focal or sensory deficits cranial nerves II through XII gross intact Course Course Course Narrative: CXR is ordered for determining the etiology of shortness of breath. Quality Measures none Vital Signs Vital signs: Vital Signs Temperature 98.1 F 10/01/24 00:16 Pulse Rate 108 H 10/01/24 00:16 Respiratory Rate 20 10/01/24 00:16 Blood Pressure 138/82 H 10/01/24 00:16 Pulse Oximetry (%) 97 10/01/24 00:16 Oxygen Delivery Method Room Air 10/01/24 00:16 Arrhythmia/Palpitations MDM Narrative MDM Narrative:: Scribe Attestation: I, Cynthia Collins, am scribing for and in the presence of Dr. Sebastian. Provider Notation: Although this document has been carefully reviewed, there may still be some phonetic and other typographical errors.? These errors are purely grammatical due to imperfections in the software program and should not be construed in any way to? compromise the substance of the patient's medical care during this visit. Patient has been experiencing palpitations without chest pain pressure tightness or heaviness. First troponin was very minimally elevated at 0.047 and the second troponin was the same. Looking back at the patient's troponin results show that this is comparable where they have been in the past. Chest x-ray is normal. EKG is nonischemic with a single PVC. Patient stable for discharge. Follow-up with his doctor. Return to ER as needed or if condition worsens. Patient data External records reviewed:: [facility] previous records (Reviewed prior ED records from 09/11/24. Patient was seen for Effusion, right knee.) and EMS form Clinical information provided by:: patient and EMS Social determinants that could affect healthcare access:: none Patient has the following chronic illnesses:: Hypercholesterolemia, Hypertension, Diabetes Mellitus Type 2 How is presenting disease/condition affected by chronic disease/condition?: exacerbated by Evaluation data The following diagnostics were reviewed and interpreted by me:: lab results and radiology exam(s) Lab and/or radiology exams considered but not ordered:: None Interpretation Summary: RADIOLOGY Chest X-Ray: Refer to MDM above. Medications / Prescriptions Medications or Prescriptions considered but not ordered:: None Medication administrations:: See above if any. Consultations Consultation(s) initiated? (list below): No Diagnosis Differential diagnosis arrhythmia/palpitations: palpitations, anxiety, sinus tachycardia, artial fibrillation, artial flutter, ventricular premature beats, supraventricular tachycardia, ventricular tachycardia and WPW Most likely diagnosis given after review of the tests above:: None Admission Indicated Admission indicated?: not indicated Explain why admission is indicated or not indicated:: Patient does not meet admission criteria. Admission Request Was there a request for admission?: No Disposition Plan Disposition Plan: Discharge Discharge Attestation Discharge Attestation: The patient and all family members were given an opportunity to ask questions and understood the discharge instructions. Discharge instructions specifically effects, indications for sooner follow up or return to the emergency department, and the expected course of current diagnosis. Patient condition: Stable Discharge Plan Plan Patient Disposition: HOME (Self Care) Prescriptions/Referrals Prescriptions/Med Rec: No Action xadnjnknyk-nlqqpgipbwegj-ysdm [Fioricet] 50-300-40 mg capsule 1 cap PO Q6H PRN (Reason: pain) Qty: 14 0RF trazodone 50 mg tablet 50 mg PO QDAY Qty: 14 0RF ondansetron 4 mg tablet,disintegrating 4 mg PO Q8H PRN (Reason: nausea and vomiting) Qty: 20 0RF Referrals: No Primary/Family,Physician [Primary Care Provider] - In 1 week Problem List Clinical Impression: Palpitations Patient/Caregiver Discharge Instructions Education Materials: ED Palpitations Additional Instructions: Your heart workup tonight was not abnormal. Follow-up with your doctor. Return to ER as needed or if condition worsens. Print Language: Greek Stand Alone Forms: Sabina Award Info., Patient Portal Info Letter
[2024-10-01 01:34] LABS: Basophils # (Auto) 0.1 Thou/mm3 (0.0-0.2); Basophils % (Auto) 1 % (0-2.5); Eosinophils # (Auto) 0.2 Thou/mm3 (0.0-0.5); Eosinophils % (Auto) 2 % (0-10); Hematocrit 36.9 % (41.0-53.0); Hemoglobin 12.4 g/dL (13.5-16.0); Immature Granulocytes Auto 0.05 Thou/mm3 (0.00-0.00); Lymphocytes # (Auto) 2.1 Thou/mm3 (1.0-4.8); Lymphocytes % (Auto) 19 % (10-50); Mean Corpuscular HGB Conc 33.6 g/dl (31.0-37.0); Mean Corpuscular Hemoglobin 27.1 pg (25.0-35.0); Mean Corpuscular Volume 81 fL (80-100); Monocytes # (Auto) 1.1 Thou/mm3 (0.0-0.8); Monocytes % (Auto) 10 % (0-12); Neutrophils # (Auto) 7.9 Thou/mm3 (1.8-7.7); Neutrophils % (Auto) 69 % (37-80); Nucleated Red Blood Cell # 0.00 Thou/mm3 (0.00-0.00); Nucleated Red Blood Cell % 0 /100 WBC (0); Platelet Count 188 Thou/mm3 (140-440); RDW Standard Deviation 45.7 fL (35.1-43.9); Red Blood Count 4.57 Miln/mm3 (4.50-5.90); White Blood Count 11.4 Thou/mm3 (3.8-10.6)
[2024-10-01 01:47] LABS: Anion Gap 10 (7-16); BUN/Creatinine Ratio 6 Ratio (12-20); Blood Urea Nitrogen 7 mg/dL (9-23); Calcium 8.6 mg/dL (8.3-10.6); Carbon Dioxide 25.4 mMol/L (20.0-31.0); Chloride 108 mMol/L (98-107); Creatinine (Component) 1.1 mg/dL (0.6-1.3); Estimated Creatinine Clearance 108.6 mL/min (>60); Glucose 103 mg/dL (74-106); Magnesium 1.6 mg/dL (1.6-2.6); Osmolality,Calculated 282 (275-295); Potassium 3.4 mMol/L (3.4-5.1); Sodium 143 mMol/L (136-145); eGFR > 60 See Note
[2024-10-01 01:50] LABS: Troponin I 0.047 ng/mL (0.0-0.045)
[2024-10-01 02:55] VITALS: BP 125/80; PULSE 81; RESP 18; TEMP 36.9; O2SAT 96
[2024-10-01 03:39] LABS: Troponin I 0.047 ng/mL (0.0-0.045)
[2024-10-01 05:00] VITALS: BP 132/76; PULSE 82; RESP 18; TEMP 36.5; O2SAT 97
--- NOTE | 2024-10-01 06:15 | PC.NURSE ---
Pt needs ride home, called [facility] transportation, ETA 1618
[2024-10-01 06:25] VITALS: BP 115/74; PULSE 88; RESP 17; TEMP 36.6; O2SAT 98
== END 2024-10-01 06:25 | disposition home or self-care (01) ==
PROVIDERS: Emergency Provider Emergency Medicine
DX: R00.2 Palpitations (principal); R07.89 Other chest pain; E78.00 Pure hypercholesterolemia, unspecified; I10 Essential (primary) hypertension; F17.210 Nicotine dependence, cigarettes, uncomplicated
CPT/HCPCS: 36415; 71045; 80048; 83735; 84484; 85025; 99283

== ENCOUNTER 2024-10-04 23:36 | Emergency (ER) | payer MEDICARE, MEDICAID, SELFPAY ==
[2024-10-04 23:54] VITALS: BP 126/84; PULSE 110; RESP 18; TEMP 36.8; O2SAT 97
--- NOTE | 2024-10-05 01:24 | EDNOTE_ITS ---
ED Psych RME/HPI General Chief Complaint: Psychiatric Symptoms Stated Complaint: PSYCH ISSUES Time Seen by Provider: 10/05/24 01:23 Arrival date/time: 10/04/24 23:36 Limitations: no limitations RME / HPI RME / HPI Narrative: Dr. Rogel's Main ED Evaluation: 44yo male GIOVANNY presents to the ED for a voluntary psychiatric evaluation. Patient endorses having hallucinations and having SI. Denies any active plan. No HI. Related Data Previous Rx's ?Medication ?Instructions ?Recorded kzeehlepxy-yclaqmxmvspis-axcjdlyu 1 cap PO Q6H PRN noel n #14 caps 07/30/24 50 mg-300 mg-40 mg capsule (Fioricet) ondansetron 4 mg disintegrating 4 mg PO Q8H PRN nausea and 07/30/24 tablet vomiting #20 tabs trazodone 50 mg tablet 50 mg PO QDAY #14 tabs 07/30 Allergies Allergy/AdvReac Type Severity Reaction Status Date / Time No Known Allergies Allergy Verified 07/30/24 09:52 Review of Systems Review of Systems Systems Reviewed: All systems reviewed, normal except as documented Past Medical History Past Medical History CARDIAC: Positive Cardiac Disorders, Hypercholesterolemia and Hypertension; Negative Congestive Heart Failure RESPIRATORY: Negative Chronic Obstructive Pulmonary Disease (COPD) or Asthma GENITOURINARY: Negative Renal Disease ENDOCRINE: Positive Endocrine Disorders and Diabetes Mellitus Type 2; Negative Diabetes Mellitus Type 1 HEMATOLOGIC: Negative Sickle Cell Disease Surgical History SURGICAL: Positive Amputation (Left above the knee) Social History SMOKING STATUS: Current every day smoker ED Exam General Limitations: Present no limitations General appearance: Present alert and in no apparent distress Head Head exam: Present atraumatic Eye Eye exam: Present normal appearance, PERRL and EOMI ENT ENT exam: Present normal exam, normal oropharynx and mucous membranes moist Neck Neck exam: Present normal inspection, full ROM and trachea midline Chest Chest inspection: Present normal inspection and symmetric chest wall rise Respiratory Respiratory exam: Present normal lung sounds bilaterally Cardiovascular Cardiovascular exam: Present regular rate, normal rhythm and normal heart sounds Abdominal Exam Abdominal exam: Present soft and normal bowel sounds Extremities Exam Extremities exam: Present normal inspection and full ROM Back Exam Back exam: Present normal inspection and full ROM Neurological Exam Neurological exam: Present alert, oriented X3 and CN II-XII intact Psychiatric Psychiatric exam: Present normal affect and normal mood Skin Skin exam: Present warm, dry, intact and normal color Course Course Course Narrative: Patient is medically clear for crisis evaluation. 0600: Care signed out to Dr. Martin (emergency physician). Past medical, surgical, social and family history reviewed. Vitals and home medications reviewed. Results and treatment plan discussed. They will assume the care of the patient at this time and will follow the patient, pending crisis evaluation. Quality Measures none Orders Category Date Time Status Acetaminophen Stat Lab 10/05/24 01:55 Completed Alcohol, Blood Medical Stat Lab 10/05/24 01:55 Completed Alcohol, Urine Stat Lab 10/05/24 01:57 Completed Basic Metabolic Panel Stat Lab 10/05/24 01:55 Completed CBC Stat Lab 10/05/24 01:55 Completed Drug Screen,Urine Stat Lab 10/05/24 01:57 Completed Diazepam [Valium] Med 10/05/24 02:17 Discontinued 5 mg PO X1 ONE Vital Signs Vital signs: Vital Signs Temperature 98.3 F 10/04/24 23:54 Pulse Rate 110 H 10/04/24 23:54 Respiratory Rate 18 10/04/24 23:54 Blood Pressure 126/84 10/04/24 23:54 Pulse Oximetry (%) 97 10/04/24 23:54 Oxygen Delivery Method Room Air 10/04/24 23:54 Psych MDM Narrative MDM Narrative:: Scribe Attestation: 10/05/24 Kelly Rivera am scribing for and in the presence of Dr. Rogel. Patient data External records reviewed:: [facility] previous records (Per chart review, patient has no relevant previous ED visits.) Clinical information provided by:: patient Social determinants that could affect healthcare access:: mental health Patient has the following chronic illnesses:: DM, HTN, HLD How is presenting disease/condition affected by chronic disease/condition?: uneffected by Evaluation data The following diagnostics were reviewed and interpreted by me:: lab results Lab and/or radiology exams considered but not ordered:: none Interpretation Summary: CBC normal, CMP normal, UDS positive for marijuana, Blood Alcohol negative, Acetaminophen negative. Medications / Prescriptions Medications or Prescriptions considered but not ordered:: none Medication administrations:: Medication Administration History Discontinued Medications Diazepam (Diazepam 5 Mg Tablet) 5 mg PO X1 ONE Stop: 10/05/24 02:18 Last Admin: 10/05/24 02:54 Dose: 5 mg Documented By: SE above Consultations Consultation(s) initiated? (list below): No Diagnosis Psych Differential Diagnosis: acute psychosis, suicidal ideation, depression and acute anxiety Most likely diagnosis given after review of the tests above:: see clinical impression below Admission Indicated Admission indicated?: not indicated Admission Request Was there a request for admission?: No Disposition Plan Disposition Plan: other (specify) (Signed out to Dr. Martin at 0600 pending crisis evaluation.) Discharge Plan Prescriptions/Referrals Prescriptions/Med Rec: No Action qdfstautiy-izdhtkszkmusa-fmfa [Fioricet] 50-300-40 mg capsule 1 cap PO Q6H PRN (Reason: pain) Qty: 14 0RF trazodone 50 mg tablet 50 mg PO QDAY Qty: 14 0RF ondansetron 4 mg tablet,disintegrating 4 mg PO Q8H PRN (Reason: nausea and vomiting) Qty: 20 0RF Referrals: Oswaldo Doll FNP [Primary Care Provider] - In 1 week Problem List Clinical Impression: Suicidal ideation, Hallucinations Patient/Caregiver Discharge Instructions Print Language: Panamanian
[2024-10-05 01:54] VITALS: BMI 34.4
[2024-10-05 02:09] LABS: Basophils # (Auto) 0.1 Thou/mm3 (0.0-0.2); Basophils % (Auto) 1 % (0-2.5); Eosinophils # (Auto) 0.2 Thou/mm3 (0.0-0.5); Eosinophils % (Auto) 2 % (0-10); Hematocrit 37.7 % (41.0-53.0); Hemoglobin 12.8 g/dL (13.5-16.0); Immature Granulocytes Auto 0.03 Thou/mm3 (0.00-0.00); Lymphocytes # (Auto) 2.1 Thou/mm3 (1.0-4.8); Lymphocytes % (Auto) 22 % (10-50); Mean Corpuscular HGB Conc 34.0 g/dl (31.0-37.0); Mean Corpuscular Hemoglobin 27.5 pg (25.0-35.0); Mean Corpuscular Volume 81 fL (80-100); Monocytes # (Auto) 0.9 Thou/mm3 (0.0-0.8); Monocytes % (Auto) 10 % (0-12); Neutrophils # (Auto) 6.6 Thou/mm3 (1.8-7.7); Neutrophils % (Auto) 66 % (37-80); Nucleated Red Blood Cell # 0.00 Thou/mm3 (0.00-0.00); Nucleated Red Blood Cell % 0 /100 WBC (0); Platelet Count 185 Thou/mm3 (140-440); RDW Standard Deviation 45.6 fL (35.1-43.9); Red Blood Count 4.66 Miln/mm3 (4.50-5.90); White Blood Count 9.9 Thou/mm3 (3.8-10.6)
[2024-10-05 02:28] LABS: Alcohol, Urine Negative (Negative); Amphetamine/Methamp Scrn,U Negative (Negative); Barbiturate Screen,Urine Negative (Negative); Benzodiazepines Screen,Urine Negative (Negative); Benzoylecgonine Screen, Ur Negative (Negative); Fentanyl Screen,Urine Negative (Negative); Opiate Screen,Urine Negative (Negative); THC Screen,Urine Positive (Negative)
[2024-10-05 02:45] LABS: Acetaminophen < 2.0 mcg/mL (10.0-20.0); Alcohol, Blood Medical < 3.0 mg/dL (0-10.0); Anion Gap 10 (7-16); BUN/Creatinine Ratio 7 Ratio (12-20); Blood Urea Nitrogen 8 mg/dL (9-23); Calcium 8.9 mg/dL (8.3-10.6); Carbon Dioxide 27.0 mMol/L (20.0-31.0); Chloride 105 mMol/L (98-107); Creatinine (Component) 1.2 mg/dL (0.6-1.3); Estimated Creatinine Clearance 97.0 mL/min (>60); Glucose 103 mg/dL (74-106); Osmolality,Calculated 281 (275-295); Potassium 3.3 mMol/L (3.4-5.1); Sodium 142 mMol/L (136-145); eGFR > 60 See Note
[2024-10-05] MEDS: DIAZEPAM 5 MG TABLET PO (02:54)
--- NOTE | 2024-10-05 06:21 | EDNOTE_ITS ---
Emergency Room Addendum Addendum Narrative: 0600: Care assumed from Dr. Arreaga, the previous shift emergency physician. Past medical, surgical, social and family history reviewed. Vitals and home medications reviewed. I will assume the care of the patient at this time, pending pending crisis evaluation. Please refer to the emergency department record for history and examination from initial visit.? The patient was placed in ED observation care at 10/05/2024 at 0600 hours. The rex kendrick was placed in ED observation care pending mental health evaluation. Then at 1105 hours, [facility] placed her on 5150 hold and now on observation care because of undifferentiated decompensated behavioral health evaluation, no behavioral health bed available. The patients past medical history, social history, and family history were reviewed. The plan of care will include serial examinations. While in ED observation the patient will have access to water, food, and personal hygiene. If the patient takes home medication(s), they will be continued in ED observation. Physical exam by me shows patient under no acute distress at this time. 1105: [facility] placed the patient on a 5150 hold, pending placement. 1440: Patient has been accepted to [facility]. ETA is 2000 hours. 2000: EMS here to pick the patient and transport to [facility]. ED observation care ended at 10/05/2024 at 2000 hours.
[2024-10-05 06:52] VITALS: BP 118/78; PULSE 85; RESP 18; TEMP 36.7; O2SAT 98
[2024-10-05 09:40] VITALS: BP 137/93; PULSE 88; RESP 18; TEMP 36.9; O2SAT 99
--- NOTE | 2024-10-05 11:12 | PC.CC ---
Patient is a 44 year-old male who presents to the hospital for mental health evaluation. [employer] made face to face contact with the patient introduced self?s, role, and reason for visit. Patient presents as unkempt and dishelved. Patient appears to be responding to internal stimuli, appearing distracted during assessment. During assessment patient stated, ?People are invading my mind. People are talking about me. Patient reported thoughts of wanting to harm self. Patient reported he has multiple plans on how he would end his life, I can bash my head, slice my wrist, or OD on meds. Patient reported he does not feel safe returning home and will not be able to follow a safety plan. Upon clinical consultation with [facility], Rita Carcamo the patient will be placed on a 5150-hold for danger to self. . Darci provided update on discharge plan to [facility] Facility to Dr. Martin, cane piler Lenise, and bedside DISHA Puckett,
--- NOTE | 2024-10-05 13:57 | PC.NURSE ---
NANCY FROM [facility] CALLED WITH POSITIVE ACCEPTANCE BY DR SIDDIQUI UNIT 1. REQUEST ARRIVAL AT 9PM. NURSE TO NURSE REPORT ALREADY COMPLETED. CONTACT INFO [phone].
[2024-10-05] MEDS: NICOTINE PATCH 14 MG/24 HR PATCH.TD24 TOP (14:03)
[2024-10-05 17:58] VITALS: BP 134/88; PULSE 93; RESP 18; TEMP 36.7; O2SAT 96
--- NOTE | 2024-10-05 18:08 | PD.EDADDENDU ---
Emergency Room Addendum Addendum Narrative: I took over the care from previous shift physician at 6 PM on 10/05/2024. See previous notes for complete H & P and ED course. I reviewed all diagnostic test results. Blood tests and urine tests Diagnoses include: Treatment here included Valium 5 mg, Nicoderm 14 mg. 2000: Patient transported by EMS to [facility]. Prince Ramirez MD
[2024-10-05 19:50] VITALS: BP 128/81; PULSE 91; RESP 18; TEMP 36.7; O2SAT 97
== END 2024-10-05 20:00 ==
PROVIDERS: Emergency Medicine; Emergency Provider Family Medicine
DX: Z00.8 Encounter for other general examination (principal); R45.851 Suicidal ideations; R44.3 Hallucinations, unspecified; Z75.1 Person awaiting admission to adequate facility elsewhere
CPT/HCPCS: 36415; 80048; 80307; 80320; 80329; 85025; 96127; 99283; A9270; G0480

== ENCOUNTER 2024-11-20 08:45 | Emergency (ER) | payer MEDICARE, MEDICAID, SELFPAY ==
[2024-11-20 09:04] VITALS: BP 129/66; PULSE 76; PULSE 77; RESP 16; RESP 17; TEMP 36.4; O2SAT 96; O2SAT 97; BMI 30.7
--- NOTE | 2024-11-20 09:39 | XR_ITS ---
Examination: AP chest single view Technique one AP portable upright chest single view Date and time: November 20, 2024 0946 hours, comparison October 01, 2024 INDICATIONS: Chest pain today. FINDINGS: Normal heart size. No lobar pneumonia or pulmonary edema Descending thoracic aortic stent IMPRESSION: No pneumonia or pulmonary edema
--- NOTE | 2024-11-20 09:39 | EKG_ITS ---
[facility] Test Date: 2024-11-20 Pat Name: LOW PISANO Department: Room: - Gender: Male Television Journalist: : 1980 Requested By: Donna Moreno Order Number: [id number] Reading MD: Donna Moreno Measurements Intervals [place] Rate: 67 P: 45 TX: 182 QRS: 27 QRSD: 90 T: 19 QT: 410 QTc: 434 Interpretive Statements SINUS RHYTHM Compared to ECG 07/30/2024 10:18:20 No significant changes /store/S0/[id number].pdf
[2024-11-20 10:10] LABS: Basophils # (Auto) 0.1 Thou/mm3 (0.0-0.2); Basophils % (Auto) 1 % (0-2.5); Eosinophils # (Auto) 0.2 Thou/mm3 (0.0-0.5); Eosinophils % (Auto) 2 % (0-10); Hematocrit 36.3 % (41.0-53.0); Hemoglobin 12.4 g/dL (13.5-16.0); Immature Granulocytes Auto 0.02 Thou/mm3 (0.00-0.00); Lymphocytes # (Auto) 1.2 Thou/mm3 (1.0-4.8); Lymphocytes % (Auto) 16 % (10-50); Mean Corpuscular HGB Conc 34.2 g/dl (31.0-37.0); Mean Corpuscular Hemoglobin 27.5 pg (25.0-35.0); Mean Corpuscular Volume 81 fL (80-100); Monocytes # (Auto) 0.6 Thou/mm3 (0.0-0.8); Monocytes % (Auto) 8 % (0-12); Neutrophils # (Auto) 5.6 Thou/mm3 (1.8-7.7); Neutrophils % (Auto) 72 % (37-80); Nucleated Red Blood Cell # 0.00 Thou/mm3 (0.00-0.00); Nucleated Red Blood Cell % 0 /100 WBC (0); Platelet Count 171 Thou/mm3 (140-440); RDW Standard Deviation 41.8 fL (35.1-43.9); Red Blood Count 4.51 Miln/mm3 (4.50-5.90); White Blood Count 7.8 Thou/mm3 (3.8-10.6)
[2024-11-20 10:22] LABS: INR 1.3 (0.9-1.3); Partial Thromboplastin Time 31.0 Seconds (22.0-36.0); Prothrombin Time 13.8 Seconds (9.0-12.2)
[2024-11-20 10:25] LABS: B-Type Natriuretic Peptide < 20 pg/mL (0-100)
--- NOTE | 2024-11-20 10:25 | EDNOTE_ITS ---
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 Accompanied by drooling he reports is due to extra saliva , pallor, cough, throbbing sensation in head, and feeling he is slurring his words. Additionally complains of pain to his neck and back though are chronic and unchanged from baseline. Reportedly daughter was worried about him today, prompting ED visit. Denies fevers, chills, chest pain, shortness of breath, abdominal pain, n/v/d, black/bloody stools, or urinary symptoms. Patient mentioned he normally has trouble sleeping at night and on Trazodone prescribed by his psychiatrist. States he has had more trouble sleeping lately and the Trazodone was increased (took the first dose last night) and also started on Benztropine. Related Data Previous Rx's ?Medication ?Instructions ?Recorded cclvmcijgb-cbtosgqqastad-cmbhrxyo 1 cap PO Q6H PRN noel n #14 caps 07/30/24 50 mg-300 mg-40 mg capsule (Fioricet) ondansetron 4 mg disintegrating 4 mg PO Q8H PRN nausea and 07/30/24 tablet vomiting #20 tabs trazodone 50 mg tablet 50 mg PO QDAY #14 tabs 07/30 Allergies Allergy/AdvReac Type Severity Reaction Status Date / Time No Known Allergies Allergy Verified 11/20/24 09:09 Review of Systems Review of Systems Systems Reviewed: All systems reviewed, normal except as documented Past Medical History Past Medical History CARDIAC: Positive Cardiac Disorders, Hypercholesterolemia and Hypertension ENDOCRINE: Positive Endocrine Disorders and Diabetes Mellitus Type 2 Surgical History SURGICAL: Positive Amputation Social History SMOKING STATUS: Current some day smoker ED Exam Narrative Physical exam: GENERAL APPEARANCE: well-developed, well-nourished, appears slightly confused and slow to respond HEENT: Normocephalic, atraumatic; pupils equal, round, reactive to light; EOMI; mucous membranes pink, moist; oropharynx clear; no drooling NECK: Supple LUNGS: CTABL; no wheezes, no rales, no rhonchi HEART: Regular rate, regular rhythm; normal S1, S2; no murmurs ABDOMEN: non distended; normal BS; soft, no tenderness, no guarding, no rebound; no masses, no organomegaly, no hernia EXTREMITIES: atraumatic; no edema NEUROLOGIC: appears slightly confused and slow to respond; cranial nerves II-XII grossly intact; no focal sensory or motor deficits SKIN: warm, dry, normal color; no rashes Course Quality Measures none Orders Category Date Time Status Director Of Special Education NOW Care 11/20/24 09:39 Active EKG (ED ONLY) *Do not use* NOW Care 11/20/24 09:[address] head/brain wo con Stat Exams 11/20/24 10:54 Completed EKG (ED Only) Stat Exams 11/20/24 09:39 Draft XR chest 1V portable Stat Exams 11/20/24 09:39 Completed B-Type Natriuretic Peptide Stat Lab 11/20/24 09:57 Completed CBC Stat Lab 11/20/24 09:57 Completed Comprehensive Metabolic Panel Stat Lab 11/20/24 09:57 Completed Drug Screen,Urine Stat Lab 11/20/24 11:51 Completed Magnesium Stat Lab 11/20/24 09:57 Completed Partial Thromboplastin Time Stat Lab 11/20/24 09:57 Completed Prothrombin Time with INR Stat Lab 11/20/24 09:57 Completed Troponin I Stat Lab 11/20/24 09:57 Completed UA, C/S IF [Urinalysis, C/S if Indicated] Stat Lab 11/20/24 11:42 Completed Magnesium Oxide [Mag-Ox 400] Med 11/20/24 10:52 Discontinued 400 mg PO X1 ONE Vital Signs Vital signs: Vital Signs Temperature 97.6 F 11/20/24 09:04 Pulse Rate 77 11/20/24 09:04 Respiratory Rate 16 11/20/24 09:04 Blood Pressure 129/66 11/20/24 09:04 Pulse Oximetry (%) 97 11/20/24 09:04 Oxygen Delivery Method Room Air 11/20/24 09:04 Pulse ox is 97% on room air which is adequate. Critical Care Time Critical Care Time Critical Care Time: No Discharge Plan Plan Patient Disposition: HOME (Self Care) Prescriptions/Referrals Prescriptions/Med Rec: No Action oexeiyvuto-ujwutagfkaoea-iogd [Fioricet] 50-300-40 mg capsule 1 cap PO Q6H PRN (Reason: pain) Qty: 14 0RF trazodone 50 mg tablet 50 mg PO QDAY Qty: 14 0RF ondansetron 4 mg tablet,disintegrating 4 mg PO Q8H PRN (Reason: nausea and vomiting) Qty: 20 0RF Referrals: Oswaldo Doll FNP [Primary Care Provider] - In 1 week Problem List Clinical Impression: Hypomagnesemia, Medication side effects Patient/Caregiver Discharge Instructions Education Materials: Discharge Instructions for ... Print Language: Turkmen Stand Alone Forms: Sabina Award Info., Patient Portal Info Letter MDM Narrative [facility] hospital course: Grecia Dennis am scribing for and in the presence of Dr. Julien. Clinical Information Provided by patient and EMS Medical Records Reviewed [facility] and EMS Meds/Rx Considered, not Ordered None Labs/Rad/Tests considered, not Ordered None Chronic Illness/Social Conditions which may negatively complicate care or outcome(s)-explain: Mental health EKG EKG Interpretation narrative: EKG @ 10:57 AM. NSR, rate 67, no acute ischemic changes, no STEMI. Lab Interpretation Labs: interpreted by de Lab(s) interpretation(s): CBC within normal limits Magnesium 1.5 UA no signs of infection UDS positive for marijuana Imaging Radiology reports / interpretation(s): Ordering Physician: Donna Julien MD Date of Service: 11/20/24 Procedure(s): XR chest 1V portable Accession Number(s): [id number] cc: Oswaldo Doll; Ari Sun MD; Donna Julien MD~ Examination: AP chest single view Technique one AP portable upright chest single view Date and time: November 20, 2024 0946 hours, comparison October 01, 2024 INDICATIONS: Chest pain today. FINDINGS: Normal heart size. No lobar pneumonia or pulmonary edema Descending thoracic aortic stent IMPRESSION: No pneumonia or pulmonary edema Dictated By: Ari Sun MD Signed By: <Electronically signed by Ari Sun MD in OV> 11/20/24 1018 Ordering Physician: Donna Julien MD Date of Service: 11/20/24 Procedure(s): CT head/brain wo con Accession Number(s): [id number] cc: Oswaldo Doll; Ari Sun MD; Donna Julien MD~ Examination: CT brain head without contrast. 2-D sagittal coronal reconstructions Date and time of exam:November 20, 2024 1113 hours, compared to July 30, 2024 INDICATIONS: Altered mental status today CTDI: vol (mGy):54.7 DLP: (mGycm):1094 Technique: Multiple CT axial sections of the brain have been obtained, 5 mm slice thickness. Contrast has not been administered. 2-D sagittal, coronal reconstructions have been obtained Low dose protocols were performed. One or more of the following dose reduction techniques were used; automated exposure control, adjustment of the mA and/or KV according to patient size, use of iterative reconstruction technique. Findings: No significant ventricular enlargement. Intra-axial or extra-axial hemorrhage density is not seen. No mass effect or midline shift Basal cisterns are not remarkable. Fourth ventricle is midline. Cranial vault intact. Impression: Negative for acute hemorrhage, mass effect or midline shift Advise clinical correlation follow-up accordingly Dictated By: Ari Sun MD Signed By: <Electronically signed by Ari Sun MD in OV> 11/20/24 1155 Medication Administration(s) Medication Administration History Discontinued Medications Magnesium Oxide (Magnesium Oxide 400 Mg Tablet) 400 mg PO X1 ONE Stop: 11/20/24 10:53 Last Admin: 11/20/24 11:45 Dose: 400 mg Documented By: TM See above Diagnosis Most likely dx, and/or detailed dx discussion: Hypomagnesemia Medication side effect Dispositon Disposition: Discharge Home
[2024-11-20 10:26] LABS: Alanine Aminotransferase 16 U/L (10-49); Albumin, Serum 4.1 gm/dL (3.5-5.0); Albumin/Globulin Ratio 2.0 (1.2-2.2); Alkaline Phosphatase 83 U/L (46-116); Anion Gap 7 (7-16); Aspartate Amino Transferase 15 U/L (0-34); BUN/Creatinine Ratio 10 Ratio (12-20); Bilirubin,Total 0.3 mg/dL (0.3-1.2); Blood Urea Nitrogen 13 mg/dL (9-23); Calcium 9.1 mg/dL (8.3-10.6); Calcium (Corrected) 9.1 mg/dL (8.5-10.1); Carbon Dioxide 28.8 mMol/L (20.0-31.0); Chloride 105 mMol/L (98-107); Creatinine (Component) 1.3 mg/dL (0.6-1.3); Estimated Creatinine Clearance 87.4 mL/min (>60); Globulin 2.1 gm/dL (2.3-3.5); Glucose 156 mg/dL (74-106); Magnesium 1.5 mg/dL (1.6-2.6); Osmolality,Calculated 284 (275-295); Potassium 3.9 mMol/L (3.4-5.1); Sodium 141 mMol/L (136-145); Total Protein 6.2 gm/dL (5.7-8.2); Troponin I 0.028 ng/mL (0.0-0.045); eGFR > 60 See Note
--- NOTE | 2024-11-20 10:54 | XR_ITS ---
Examination: CT brain head without contrast. 2-D sagittal coronal reconstructions Date and time of exam:November 20, 2024 1113 hours, compared to July 30, 2024 INDICATIONS: Altered mental status today CTDI: vol (mGy):54.7 DLP: (mGycm):1094 Technique: Multiple CT axial sections of the brain have been obtained, 5 mm slice thickness. Contrast has not been administered. 2-D sagittal, coronal reconstructions have been obtained Low dose protocols were performed. One or more of the following dose reduction techniques were used; automated exposure control, adjustment of the mA and/or KV according to patient size, use of iterative reconstruction technique. Findings: No significant ventricular enlargement. Intra-axial or extra-axial hemorrhage density is not seen. No mass effect or midline shift Basal cisterns are not remarkable. Fourth ventricle is midline. Cranial vault intact. Impression: Negative for acute hemorrhage, mass effect or midline shift Advise clinical correlation follow-up accordingly
[2024-11-20] MEDS: MAGNESIUM OXIDE 400 MG TABLET PO (11:45)
[2024-11-20 11:50] VITALS: BP 111/73; PULSE 69; RESP 18; TEMP 36.6; O2SAT 98
[2024-11-20 12:17] LABS: Collection Type, Urine Clean Catch
[2024-11-20 12:31] LABS: Amorphous Crystals,Urine Present (Absent); Bacteria,Urine Rare; Bilirubin,Urine Negative (Negative); Blood,Urine Trace (Negative); Clarity,Urine Clear (Clear/Hazy); Color,Urine Lt-Yellow (Lt Yel-Yel); Culture Indicated,Urine Not Indicated; Glucose, Urine Negative (Negative); Ketones,Urine Negative (Negative); Leukocyte Esterase,Urine Negative (Negative); Nitrite,Urine Negative (Negative); PH,Urine 6.5 (5.0-7.0); Protein,Urine Trace (Neg - Trace); RBC,Urine 5 /hpf (0-3); Specific Gravity,Urine 1.027 (1.001-1.035); Squamous Epithelial Cell,Urine 1 /hpf (0-5); Urobilinogen,Urine Negative mg/dL (0.0-1.0); WBC,Urine 1 /hpf (0-5)
[2024-11-20 12:33] LABS: Sperm,Urine Present
[2024-11-20 12:41] LABS: Amphetamine/Methamp Scrn,U Negative (Negative); Barbiturate Screen,Urine Negative (Negative); Benzodiazepines Screen,Urine Negative (Negative); Benzoylecgonine Screen, Ur Negative (Negative); Fentanyl Screen,Urine Negative (Negative); Opiate Screen,Urine Negative (Negative); THC Screen,Urine Positive (Negative)
--- NOTE | 2024-11-20 13:22 | PC.NURSE ---
THIS RN CALLED PTS DAUGHTER TO SEE ABOUT GETTING HIM A RIDE HOME PT IS DISCHARGED, DAUGHTER SAID THEY DON'T HAVE CAR AND THAT THE HOSPITAL NEEDS TO FIGURE IT OUT. THIS RN WENT IN TO SPEAK W/PT, TO COME UP WITH A PLAN, PT CALLED DAUGHTER ON SPEAKER PHONE, DAUGHTER HEARD TELLING HIM THAT SHE HAS TO GO [employer] SOMEONE SO THE HOSPITAL NEEDS TO FIGURE OUT HOW TO GET HIM BACK HOME, SHE THEN TOLD HIM THAT IT NEEDS TO BE BEFORE 1:30 OR HE WILL NEED TO WAIT OUTSIDE. THIS RN SPOKE TO SW PT HAS LEFT LEG AMPUTATION AND UNABLE TO GET AROUND ON HIS OWN WITHOUT APPROPRIATE EQUIPMENT. SW TO CALL FAMILY COME UP WITH A PLAN AND BOOK A RIDE FOR PT.
--- NOTE | 2024-11-20 13:56 | PC.CC ---
Addendum entered by Latosha Gann 11/20/24 14:34: [id number]-ASW contacted pts daughter to inform her that pt will be picked up from the ER at 1530 and she confirmed that she will be home to receive the pt. Addendum entered by Latosha Gann 11/20/24 14:32: [id number]-ASW received a call from Calli from [employer] and provided a p/u eta of 1530. Addendum entered by Latosha Gann 11/20/24 14:10: 1340-ASW contacted pts daughter who is listed on the face sheet to ask if she would be able to flower buncher or picker the pt. Daughter stated she does not drive and is unable to flower buncher or picker the pt. ASW informed pts daughter that the hospital can provide transportation for the pt to return home, but family will need to be home to receive the pt as he can absolutely not be left outside alone due to weakness. Pts daughter stated she will be home to receive the pt at 2:30pm. Pts daughter was made aware that due to pts condition of weakness he cannot be alone outside and pts daughter understood. Original Note: [id number]-ASW contacted [facility] to arrange the AUTH for the [facility] transport home. [facility] Trip Reservation #[id number]. [facility] will contact [facility] once approved. ASW contacted [facility] and placed this transport on a Will Call, ASW spoke with Saira from [employer]. [facility] will call the ER when they receive a call [facility] with the approval. At this time, there is no p/u eta. Transportation is placed on a will call until the hospital is notified.
--- NOTE | 2024-11-20 16:06 | PC.NURSE ---
[facility] CALLED AND STATED NEW P/U TIME WILL BE [id number]
[2024-11-20 17:36] VITALS: BP 122/69; PULSE 70; RESP 16; TEMP 37.2; O2SAT 96
== END 2024-11-20 17:40 | disposition home or self-care (01) ==
PROVIDERS: Emergency Provider Emergency Medicine
DX: E83.42 Hypomagnesemia (principal); T50.905A Adverse effect of unspecified drugs, medicaments and biological substances, initial encounter; M54.2 Cervicalgia; E78.5 Hyperlipidemia, unspecified; F20.9 Schizophrenia, unspecified; Z86.718 Personal history of other venous thrombosis and embolism; E11.9 Type 2 diabetes mellitus without complications; I10 Essential (primary) hypertension
CPT/HCPCS: 36415; 70450; 71045; 80053; 80307; 81001; 83735; 83880; 84484; 85025; 85610; 85730; 93005; 99283; A9270